=== PATIENT | female | born 1955 | race Caucasian/White ===

== ENCOUNTER 2018-10-16 07:32 | Emergency (ER) | payer MEDICARE, BC ==
[~2018-10-16 07:32] MED LIST: ASPI-1403; ATOR10TA65; CHOL100052; CIPR-344 PO; FLU44R; FURO-47; GLY5; HYDR-385 PO; HYDR-653 PO; LISI-374; METO-235; MULT-1335; ONDA4TAB PO; PIOG30TA34; SPIR25TA80; VITA1CAP46
[2018-10-16 07:43] VITALS: BP 131/81
[2018-10-16] MEDS ORDERED: CEPHALEXIN MONO 500 MG CAP PO ONE (07:55)
[2018-10-16] MEDS ORDERED: LEVOFLOXACIN 750 MG TAB PO ONE (08:00)
[2018-10-16] MEDS ORDERED: LEVO750T44 PO (08:05)
--- NOTE | 2018-10-16 08:05 | ER Report ---
History and Physical Time Seen By MD: 07:30 Hx. of Stated Complaint: SYMPTOMS OF UTI SINCE WEDNESDAY. HAS BACK PAIN, URINARY FREQUENCY HPI/ROS CHIEF COMPLAINT: Right-sided back and flank pain. HISTORY OF PRESENT ILLNESS: Patient is a 62-year-old female who is visiting [place] for the summer she states that since when she arrived she was having pain in her back. She states that she brought she had just pulled a muscle in her back because she just drove all day from [place]. She states that over the next 24 hours symptoms did not improve and felt weak fatigued and tired and states that her symptoms felt similar to her urinary tract infections she's had in the past. She denies any fevers or chills she denies any dysuria but is now reporting some suprapubic abdominal pain. REVIEW OF SYSTEMS: Respiratory: No cough, no dyspnea. Cardiovascular: No chest pain, no palpitations. Gastrointestinal: Suprapubic abdominal pain Musculoskeletal: Sided flank pain Allergies: Coded Allergies: codeine (Verified Allergy, Unknown, 10/16/18) Home Meds Active Scripts Levofloxacin 750 Mg Tab (LEVAQUIN 750 MG TAB) 750 Mg Tablet, 750 MG PO QDAY for 4 Days, #4 TAB 0 Refills first dose on 10/17/18 Prov:LUPE LUTZ MD 10/16/18 Discontinued Reported Medications Hydrocodone Bit/Acetaminophen (HYDROCODON-ACETAMINOPHEN 5-325) 1 Each Tablet, 1 EACH PO 10/31/12 Ciprofloxacin Hcl 500 Mg Tab (CIPRO 500 MG TAB) 500 Mg Tablet, 500 MG PO 10/31/12 Fluticasone Prop 44 Mcg (FLOVENT HFA 44 MCG) 44 Mcg Inha 10/31/12 Multivitamin With Minerals (MULTIPLE VITAMIN) 1 Each Tablet 10/31/12 Cholecalciferol (Vitamin D3) (VITAMIN D) 1,000 Unit Tablet 10/31/12 Vitamin B Complex (VITAMIN B COMPLEX) 1 Each Capsule 10/31/12 Spironolactone (SPIRONOLACTONE) 25 Mg Tablet 10/31/12 Pioglitazone Hcl (ACTOS) 30 Mg Tablet 10/31/12 Metoprolol Succinate (TOPROL XL) 100 Mg Tab.er.24h 10/31/12 Lisinopril (LISINOPRIL) 40 Mg Tablet 10/31/12 Glyburide (GLYBURIDE) 5 Mg Tab 10/31/12 Atorvastatin Calcium (ATORVASTATIN CALCIUM) 10 Mg Tablet 10/31/12 Furosemide (FUROSEMIDE) 40 Mg Tablet 10/31/12 Aspirin (ADULT LOW DOSE ASPIRIN EC) 81 Mg Tablet. 10/31/12 Discontinued Scripts Hydrocodone Bit/Acetaminophen (NORCO 5-325 TABLET) 1 Each Tablet, 1 EACH PO Q4H PRN for PAIN, #10 TAB Prov:JUSCAROLE DO 01/01/17 Ondansetron (ZOFRAN ODT) 4 Mg Tab.rapdis, 4 MG PO Q4-6H PRN for NAUSEA/VOMITING, #15 TAB.GEOVANNA Prov:RAFIQ NELSON V DO 12/30/16 Hydrocodone Bit/Acetaminophen (HYDROCODON-ACETAMINOPHEN 5-325) 1 Each Tablet, 1 EACH PO Q4-6H PRN for pain, #20 TAB Prov:DEXTERORAANKITARAFIQ V DO 12/30/16 Past Medical/Surgical History Past medical history for left ventricular systolic dysfunction, history of wrist fracture, history of urinary tract infections History of type II diabetes. Hx Smoking: No Hx Substance Use Disorder: No Hx Alcohol Use: Yes (rarely) Constitutional Vital Sign - Last 24 Hours 10/16/18 07:43 Temp 97.8 Pulse 85 Resp 18 B/P (MAP) 131/81 Pulse Ox 90 O2 Delivery Room Air Physical Exam General Appearance: The patient is alert, has no immediate need for airway protection and no current signs of toxicity. Eyes: Pupils equal and round no injection. Respiratory: Chest is non tender, lungs are clear to auscultation. Cardiac: regular rate and rhythm [ ] Gastrointestinal: Abdomen is soft and non tender, no masses, bowel sounds normal. Musculoskeletal: Neck: Neck is supple and non tender. Extremities have full range of motion and are non tender. Skin: No rashes or lesions. Medical Decision Making Data Points Laboratory Hematology Test 10/16/18 07:38 Urine Color Yellow Urine Clarity Cloudy Urine pH 6.0 pH (4.8-9.5) Urine Specific [place] 1.020 Urine Protein 30 mg/dL (NEGATIVE) Urine Glucose (UA) Negative mg/dL (NEGATIVE) Urine Ketones Negative mg/dL (NEGATIVE) Urine Blood Small (NEGATIVE) Urine Nitrite Negative (NEGATIVE) Urine Bilirubin Negative (NEGATIVE) Urine Urobilinogen 2.0 mg/dL (0.2-1.9) Urine Leukocyte Esterase Large (NEGATIVE) Urine RBC 17 /HPF (0-2/HPF) Urine WBC 755 /HPF (0-5/HPF) Urine WBC Clumps Mod /HPF Urine Squamous Epithelial Cells Many /LPF (</=FEW) Urine Transitional Epithelial Cells Many /LPF (NONE-FEW) Urine Bacteria Few /HPF (NONE-FEW) Urine Mucus Few /HPF (NONE-FEW) Chemistry Test 10/16/18 07:38 Urine Color Yellow Urine Clarity Cloudy Urine pH 6.0 pH (4.8-9.5) Urine Specific [place] 1.020 Urine Protein 30 mg/dL (NEGATIVE) Urine Glucose (UA) Negative mg/dL (NEGATIVE) Urine Ketones Negative mg/dL (NEGATIVE) Urine Blood Small (NEGATIVE) Urine Nitrite Negative (NEGATIVE) Urine Bilirubin Negative (NEGATIVE) Urine Urobilinogen 2.0 mg/dL (0.2-1.9) Urine Leukocyte Esterase Large (NEGATIVE) Urine RBC 17 /HPF (0-2/HPF) Urine WBC 755 /HPF (0-5/HPF) Urine WBC Clumps Mod /HPF Urine Squamous Epithelial Cells Many /LPF (</=FEW) Urine Transitional Epithelial Cells Many /LPF (NONE-FEW) Urine Bacteria Few /HPF (NONE-FEW) Urine Mucus Few /HPF (NONE-FEW) Urinalysis Test 10/16/18 07:38 Urine Color Yellow Urine Clarity Cloudy Urine pH 6.0 pH (4.8-9.5) Urine Specific [place] 1.020 Urine Protein 30 mg/dL (NEGATIVE) Urine Glucose (UA) Negative mg/dL (NEGATIVE) Urine Ketones Negative mg/dL (NEGATIVE) Urine Blood Small (NEGATIVE) Urine Nitrite Negative (NEGATIVE) Urine Bilirubin Negative (NEGATIVE) Urine Urobilinogen 2.0 mg/dL (0.2-1.9) Urine Leukocyte Esterase Large (NEGATIVE) Urine RBC 17 /HPF (0-2/HPF) Urine WBC 755 /HPF (0-5/HPF) Urine WBC Clumps Mod /HPF Urine Squamous Epithelial Cells Many /LPF (</=FEW) Urine Transitional Epithelial Cells Many /LPF (NONE-FEW) Urine Bacteria Few /HPF (NONE-FEW) Urine Mucus Few /HPF (NONE-FEW) ED Course/Re-evaluation ED Course Urinalysis shows large leukocytes and bacteria. We'll treat her with Levaquin for 5 days. We'll also send urine for culture and sensitivity. Decision to Disposition Date: October 16, 2018 Decision to Disposition Time: 08:02 Depart Departure Latest Vital Signs Vital Signs Date Time Temp Pulse Resp B/P (MAP) Pulse Ox O2 Delivery O2 Flow Rate FiO2 10/16/18 07:43 97.8 85 18 131/81 90 Room Air Impression: Primary Impression: Urinary tract infection Condition: Improved Disposition: HOME OR SELF-CARE New Scripts Levofloxacin 750 Mg Tab (LEVAQUIN 750 MG TAB) 750 Mg Tablet 750 MG PO QDAY for 4 Days, #4 TAB 0 Refills first dose on 10/17/18 Prov: LUPE LUTZ MD 10/16/18 Patient Instructions: Urinary Tract Infection in Women (DC) Additional Instructions: Return to the emergency department for reevaluation if your symptoms do not improve within 2-3 days or sooner if they worsen at any time. Problem Qualifiers Primary Impression: Urinary tract infection Urinary tract infection type: acute cystitis Hematuria presence: without hematuria Qualified Codes: N30.00 - Acute cystitis without hematuria LUPE LUTZ MD October 16, 2018 08:05
== END 2018-10-16 08:18 | disposition home or self-care (01) ==
LOC: ER 08:01
DX: N30.00 Acute cystitis without hematuria (principal)
CPT/HCPCS: 81001; 87088; 99283; A9270; 87077; 87186

== ENCOUNTER → 2018-10-21 | Outpatient (REF) | payer MEDICARE, BC ==
[~2018-10-21] MED LIST changes: +LEVO750T44 PO
== END ==
LOC: ZZSTITCHES 10:35
PROVIDERS: ATTEND Physician Assistant
DX: I50.9 Heart failure, unspecified (principal); R60.9 Edema, unspecified; N39.0 Urinary tract infection, site not specified
CPT/HCPCS: 82040; 82247; 82310; 82374; 82435; 82565; 82947; 83036; 83880; 84075; 84132; 84155; 84295; 84450; 84460; 84520